=== PATIENT | male | born 1965 | race Caucasian/White ===

== ENCOUNTER 2017-09-05 16:52 | Emergency (ER) | payer MEDICAID ==
[~2017-09-05] VITALS: Ht 175.3 cm; Wt 84.1 kg
[~2017-09-05 16:52] MED LIST: ALBU8HFA PO; BACDS PO; CYCL-1 PO; HYDR-2514 PO; TRAZ-91 PO
[2017-09-05 17:04] VITALS: BP 157/97
== END 2017-09-05 19:05 | disposition home or self-care (01) ==
LOC: ER 16:53
DX: M70.22 Olecranon bursitis, left elbow (principal); J45.909 Unspecified asthma, uncomplicated; G89.29 Other chronic pain; M19.90 Unspecified osteoarthritis, unspecified site; Z86.14 Personal history of Methicillin resistant Staphylococcus aureus infection; Z88.0 Allergy status to penicillin; Z88.5 Allergy status to narcotic agent; Z91.013 Allergy to seafood; Z79.899 Other long term (current) drug therapy; Y93.89 Activity, other specified
CPT/HCPCS: 99281; 99285

== ENCOUNTER 2019-03-18 10:02 | Emergency (ER) | payer MEDICAID ==
[~2019-03-18] VITALS: Ht 175.3 cm; Wt 93.2 kg
[2019-03-18 10:27] VITALS: BP 144/93
[2019-03-18] MEDS ORDERED: MUPI22OI30 TOP (10:49)
== END 2019-03-18 11:10 | disposition home or self-care (01) ==
LOC: ER 10:03
DX: L02.414 Cutaneous abscess of left upper limb (principal); J45.909 Unspecified asthma, uncomplicated; M19.90 Unspecified osteoarthritis, unspecified site; G89.29 Other chronic pain; F17.210 Nicotine dependence, cigarettes, uncomplicated; Z90.89 Acquired absence of other organs; Z86.14 Personal history of Methicillin resistant Staphylococcus aureus infection; Z88.0 Allergy status to penicillin; Z88.5 Allergy status to narcotic agent; Z91.013 Allergy to seafood
CPT/HCPCS: 99283

== ENCOUNTER 2019-05-16 15:23 | Emergency (ER) | payer MEDICAID ==
[~2019-05-16] VITALS: Ht 175.3 cm; Wt 80.0 kg
[2019-05-16] MEDS ORDERED: LIDOcaine 1% w/EPI 1:200,000 injection 10mL vial IM ONE (16:15)
[2019-05-16] MEDS ORDERED: TETanus/Pertussis (Acell)/Diphther VAC/PF (Tdap-Adult) 0.5ml syringe IM ONE (16:15)
[2019-05-16] MEDS ORDERED: LIDOcaine 1% W/epiNEPHrine 1:200,000 10ml vial IJ ONE (16:25)
[2019-05-16] MEDS ORDERED: CLIN-90 PO (16:30)
== END 2019-05-16 16:56 | disposition home or self-care (01) ==
LOC: ER 15:24
DX: L03.311 Cellulitis of abdominal wall (principal); J45.909 Unspecified asthma, uncomplicated; M19.90 Unspecified osteoarthritis, unspecified site; G89.29 Other chronic pain; F12.90 Cannabis use, unspecified, uncomplicated; F15.90 Other stimulant use, unspecified, uncomplicated; Z86.14 Personal history of Methicillin resistant Staphylococcus aureus infection; Z90.89 Acquired absence of other organs; Z88.0 Allergy status to penicillin; Z91.013 Allergy to seafood; Z88.5 Allergy status to narcotic agent; Z79.899 Other long term (current) drug therapy
CPT/HCPCS: 90471; 99284

== ENCOUNTER 2019-07-12 17:06 | Emergency (ER) | payer MEDICAID ==
[~2019-07-12] VITALS: Ht 175.3 cm; Wt 90.0 kg
[~2019-07-12 17:06] MED LIST changes: +CLIN-90 PO; +LIDOcaine 1% W/epiNEPHrine 1:100,000 20ml vial ONE
[2019-07-12 17:09] VITALS: BP 142/81
[2019-07-12] MEDS ORDERED: SULF1TAB49 PO (17:48)
[2019-07-12] MEDS ORDERED: CEPH-572 PO (17:48)
== END 2019-07-12 17:51 | disposition home or self-care (01) ==
LOC: ER 17:06
DX: L02.413 Cutaneous abscess of right upper limb (principal); J43.9 Emphysema, unspecified; M19.90 Unspecified osteoarthritis, unspecified site; G89.29 Other chronic pain; F12.90 Cannabis use, unspecified, uncomplicated; F15.90 Other stimulant use, unspecified, uncomplicated; F17.200 Nicotine dependence, unspecified, uncomplicated; Z86.14 Personal history of Methicillin resistant Staphylococcus aureus infection; Z98.890 Other specified postprocedural states; Z88.0 Allergy status to penicillin; Z88.5 Allergy status to narcotic agent; Z91.013 Allergy to seafood; Z79.2 Long term (current) use of antibiotics; Z79.899 Other long term (current) drug therapy
CPT/HCPCS: 10060; 99283

== ENCOUNTER 2019-09-02 13:57 | Emergency (ER) | payer MEDICAID ==
[~2019-09-02] VITALS: Ht 175.3 cm; Wt 103.0 kg
[~2019-09-02 13:57] MED LIST changes: -LIDOcaine 1% W/epiNEPHrine 1:100,000 20ml vial ONE
[2019-09-02] MEDS ORDERED: normal saline 1000ML IV soln IVB ONE (14:20)
[2019-09-02 14:37] VITALS: BP 148/79
[2019-09-02 14:45] LABS: BASOPHILS % (AUTO) 0.4 % (0-1); EOSINOPHILS % (AUTO) 0.2 % (0-6); HEMATOCRIT 38.3 % (42.0-52.0); HEMOGLOBIN 13.2 g/dl (14.0-17.9); LYMPHOCYTES % (AUTO) 11.6 % (21-51); MEAN CORPUSCULAR HEMOGLOBIN 30.4 PG (27.0-31.0); MEAN CORPUSCULAR HGB CONC 34.4 g/dL (33.0-36.5); MEAN CORPUSCULAR VOLUME 88.2 FL (78-98); MEAN PLATELET VOLUME 8.3 FL (7.4-10.4); MONOCYTES # (AUTO) 0.5 X10'3 (0-0.9); MONOCYTES % (AUTO) 5.9 % (2-12); NEUTROPHILS # (AUTO) 7.2 X10'3 (1.8-7.7); NEUTROPHILS % (AUTO) 81.9 % (42-75); PLATELET COUNT 220 X10'3 (140-440); RED BLOOD COUNT 4.34 X10'6 (4.70-6.10); RED CELL DISTRIBUTION WIDTH 15.2 % (11.5-14.5); WHITE BLOOD COUNT 8.8 X10'3 (4.5-11.0)
[2019-09-02 14:49] LABS: ALANINE AMINOTRANSFERASE 17 U/L (12-78); ALBUMIN 3.4 G/DL (3.4-5.0); ALBUMIN/GLOBULIN RATIO 0.8 (1.1-1.5); ALKALINE PHOSPHATASE 95 IU/L (46-116); ANION GAP 4 (8-16); ASPARTATE AMINO TRANSFERASE 17 U/L (10-37); BILIRUBIN,TOTAL 0.2 MG/DL (0.1-1.0); BLOOD UREA NITROGEN 12 MG/DL (7-18); BUN/CREATININE RATIO 9.2 (5.4-32.0); CALCIUM 8.4 MG/DL (8.5-10.1); CHLORIDE 106 MMOL/L (99-107); CREATININE 1.31 MG/DL (0.60-1.10); GLUCOSE 173 MG/DL (70-104); POTASSIUM 3.9 MMOL/L (3.5-5.1); SODIUM 139 MMOL/L (135-145); TOTAL PROTEIN 7.5 G/DL (6.4-8.2); eGFR 57 ML/MIN
== END 2019-09-02 15:23 | disposition home or self-care (01) ==
LOC: ER 13:58
DX: F11.10 Opioid abuse, uncomplicated (principal); R55 Syncope and collapse; J45.909 Unspecified asthma, uncomplicated; J43.9 Emphysema, unspecified; M19.90 Unspecified osteoarthritis, unspecified site; G89.29 Other chronic pain; F12.90 Cannabis use, unspecified, uncomplicated; F15.90 Other stimulant use, unspecified, uncomplicated; Z86.14 Personal history of Methicillin resistant Staphylococcus aureus infection; Z98.890 Other specified postprocedural states; Z88.0 Allergy status to penicillin; Z88.5 Allergy status to narcotic agent; Z91.013 Allergy to seafood; Z79.2 Long term (current) use of antibiotics; Z79.899 Other long term (current) drug therapy
CPT/HCPCS: 36415; 71045; 80053; 83735; 83880; 84484; 85025; 93005; 96360; 99285; J7030

== ENCOUNTER 2020-08-21 11:29 | Emergency (ER) | payer MEDICAID ==
[~2020-08-21] VITALS: Ht 175.3 cm; Wt 90.9 kg
[~2020-08-21 11:29] MED LIST changes: -CLIN-90 PO; +CLIN-97 PO
== END 2020-08-21 12:10 | disposition home or self-care (01) ==
LOC: ER 11:29
DX: R06.02 Shortness of breath (principal); Z20.822 Contact with and (suspected) exposure to COVID-19; R19.7 Diarrhea, unspecified; M79.10 Myalgia, unspecified site; J45.909 Unspecified asthma, uncomplicated; J43.9 Emphysema, unspecified; M19.90 Unspecified osteoarthritis, unspecified site; G89.29 Other chronic pain; Z86.14 Personal history of Methicillin resistant Staphylococcus aureus infection; F12.90 Cannabis use, unspecified, uncomplicated; F15.90 Other stimulant use, unspecified, uncomplicated; F14.90 Cocaine use, unspecified, uncomplicated; Z88.0 Allergy status to penicillin; Z91.013 Allergy to seafood; Z88.8 Allergy status to other drugs, medicaments and biological substances; Z79.2 Long term (current) use of antibiotics; Z79.899 Other long term (current) drug therapy
CPT/HCPCS: 36415; 87635; 99283

== ENCOUNTER 2021-01-11 07:15 | Emergency (ER) | payer MEDICAID ==
[~2021-01-11] VITALS: Ht 175.3 cm; Wt 97.7 kg
[~2021-01-11 07:15] MED LIST changes: -BACDS PO; +SULF1TAB45 PO
[2021-01-11 07:36] VITALS: BP 154/92
[2021-01-11] MEDS ORDERED: HYDR-3686 PO (08:30)
[2021-01-11] MEDS ORDERED: TRAZ-256 PO (08:30)
[2021-01-11] MEDS ORDERED: hydrOXYzine 25 MG tablet PO ONE (08:30)
--- NOTE | 2021-01-11 08:52 | NUR ---
ATTEMPTING TO DC PT AND GIVE HIM PO ATARAX. PT IN BATHROOM.
== END 2021-01-11 08:54 | disposition home or self-care (01) ==
LOC: ER 07:16
DX: F41.9 Anxiety disorder, unspecified (principal); J43.9 Emphysema, unspecified; M19.90 Unspecified osteoarthritis, unspecified site; G89.29 Other chronic pain; F12.90 Cannabis use, unspecified, uncomplicated; F15.90 Other stimulant use, unspecified, uncomplicated; F14.90 Cocaine use, unspecified, uncomplicated; Z86.14 Personal history of Methicillin resistant Staphylococcus aureus infection; Z72.89 Other problems related to lifestyle; Z90.89 Acquired absence of other organs; Z88.0 Allergy status to penicillin; Z88.5 Allergy status to narcotic agent; Z91.013 Allergy to seafood; Z79.2 Long term (current) use of antibiotics; Z79.899 Other long term (current) drug therapy
CPT/HCPCS: 99283

== ENCOUNTER 2021-06-28 05:44 | Inpatient (IN) | payer MEDICAID ==
[2021-06-21 16:20] LABS: BASOPHILS % (AUTO) 0.5 % (0-1); EOSINOPHILS # (AUTO) 0.2 X10'3 (0-0.9); LYMPHOCYTES # (AUTO) 1.6 X10'3 (1.1-4.8); LYMPHOCYTES % (AUTO) 19.5 % (21-51); MEAN CORPUSCULAR HEMOGLOBIN 31.3 PG (27.0-31.0); MEAN CORPUSCULAR HGB CONC 35.1 g/dL (33.0-36.5); MEAN CORPUSCULAR VOLUME 89.2 FL (78-98); MEAN PLATELET VOLUME 7.9 FL (7.4-10.4); NEUTROPHILS # (AUTO) 5.5 X10'3 (1.8-7.7); PRE OP HEMATOCRIT 36.6 % (42.0-52.0); PRE OP HEMOGLOBIN 12.8 g/dL (14.0-17.9); PRE OP PLATELET COUNT 204 X10'3 (140-440); RED CELL DISTRIBUTION WIDTH 15.1 % (11.5-14.5)
[2021-06-21 16:31] LABS: ALBUMIN 3.5 G/DL (3.4-5.0); ALBUMIN/GLOBULIN RATIO 0.9 (1.1-1.5); ALKALINE PHOSPHATASE 89 IU/L (46-116); BLOOD UREA NITROGEN 19 MG/DL (7-18); CALCIUM 8.6 MG/DL (8.5-10.1); CHLORIDE 102 MMOL/L (99-107); CREATININE 1.12 MG/DL (0.60-1.10); PRE OP ALT 34 U/L (30-65); PRE OP ANION GAP 6 (8-16); PRE OP AST 15 U/L (10-37); PRE OP BILIRUB, TOTAL 0.2 MG/DL (0.0-1.0); PRE OP GLUCOSE 91 MG/DL (70-104); PRE OP POTASSIUM 4.4 MMOL/L (3.4-5.1); PRE OP SODIUM 137 MMOL/L (135-145); TOTAL CARBON DIOXIDE 29.3 MMOL/L (24-32); TOTAL PROTEIN 7.6 G/DL (6.4-8.2); eGFR 68 ML/MIN
[2021-06-28] VITALS (18 sets, daily range): BP systolic 112–177; BP diastolic 68–95
[~2021-06-28] VITALS: Ht 175.3 cm; Wt 113.0 kg
[~2021-06-28 05:44] MED LIST changes: -ALBU8HFA PO; +ALBUTEROL INH; +BUPR1FIL3; +CHLO25TA10 PO; -CLIN-97 PO; -CYCL-1 PO; -HYDR-2514 PO; -SULF1TAB45 PO; +TRAZ-256 PO; -TRAZ-91 PO; +albuterol 2.5 MG/3 ML nebule NEB ONE; +clindamycin-Cleocin 900mg/D5W 50 ML IV ONE; +famotidine 20mg tablet PO ONE; +ringers solution, lacted 1,000 ML IV SCH
[2021-06-28] MEDS ORDERED: BUPIVAcaine/PF 2.5mg/ml (0.25%) 10ml vial ONE (06:42)
[2021-06-28] MEDS ORDERED: BUPIVAcaine/PF 2.5 mg/ml (0.25%) 30ml vial ONE (06:42)
[2021-06-28] MEDS ORDERED: LIDOcaine 1% 30ml preserv. free vial ONE (06:42)
[2021-06-28] MEDS ORDERED: BUPIVACAINE liposomal/PF 13.3 MG/ML vial IM ONE (06:42)
[2021-06-28] MEDS ORDERED: sevoflurane 250ml liquid IH ONE (07:23)
[2021-06-28] MEDS ORDERED: rocuronium 10mg/ml inj IV ONE (07:28)
[2021-06-28] MEDS ORDERED: fentaNYL/PF 50MCG/1 ML 2ML syringe ONE (07:28)
[2021-06-28] MEDS ORDERED: midazolam 1 mg/ML 2ml injection ONE (07:28)
[2021-06-28] MEDS ORDERED: propofol inj 20 ML IV ONE (07:28)
[2021-06-28] MEDS ORDERED: morphine 4 MG/ML inj SYRINge IV PRN (08:10)
[2021-06-28] MEDS ORDERED: labetalol 20mg/4ml (5mg/ml) syringe IV PRN (08:10)
[2021-06-28] MEDS ORDERED: albuterol 2.5 MG/3 ML nebule NEB ONE (08:10)
[2021-06-28] MEDS ORDERED: morphine 2 MG/ML inj. syringe IV PRN (08:10)
[2021-06-28] MEDS ORDERED: ringers solution, lacted 1,000 ML IV SCH (08:10)
[2021-06-28] MEDS ORDERED: proCHLORperazine 10 MG/2 ml inj IV PRN (08:10)
[2021-06-28] MEDS ORDERED: meperidine/PF 25mg/ml syringe IV PRN ×3 (08:10)
[2021-06-28] MEDS ORDERED: ondansetron/PF 4mg/2ml inj IV PRN ×2 (08:10→13:35)
[2021-06-28] MEDS ORDERED: dexamethasone sod phosphate 4mg/ml inj. ONE (08:46)
[2021-06-28] MEDS ORDERED: ondansetron/PF 4mg/2ml inj ONE (08:47)
[2021-06-28] MEDS ORDERED: neostigmine methylsulfate 1 MG/ML 10ml vial ONE (08:48)
[2021-06-28] MEDS ORDERED: glycopyrrolate 0.2mg/ml inj ONE (08:48)
[2021-06-28] MEDS ORDERED: sugammadex 200mg/2ml injection IV ONE ×2 (09:06→09:22)
--- NOTE | 2021-06-28 09:26 | NUR ---
Received from OR via [facility], 20G IV TO LEFT HAND. ABD DSG CDI, ABD BINDER IN PLACE., accompanied by Anesthesiologist FRANCISCA AND HAND TOOL LAPPER and report given by Anesthesiolgist. Addendum: 06/28/21 at 0937 by Lima Zuniga RN Amended: Links added.
[2021-06-28] MEDS ORDERED: OXYC1TAB17 PO (09:36)
[2021-06-28] MEDS: oxyCODONE/APAP 10/325mg tablet PO PRN (10:16)
--- NOTE | 2021-06-28 10:55 | NUR ---
PT UP IN WC SATS 88-90, PT DRIFTING TO SLEEP SATS DECREASE, PAGED RT FOR TX, CONTINUED TO ROUSE PT. INSTRUCTED PT IN USE OF IS WITH RETURN DEMO 12 XS, STATS INCREASED TO 93% RA. RT AT FOR TX Addendum: 06/28/21 at 1102 by Lima Zuniga RN Amended: Links added.
--- NOTE | 2021-06-28 12:16 | NUR ---
PT TAKEN TO PAS UNIT VIA WC. REPORT GIVEN TO BHAVESH BRONSON. PT EDUCATED EXTENSIVELY MULTIPLE TIME OF THE IMPORTANCE TO COUGH AND DEEP BREATHING. EDUCATED AT LENGTH RE LOW O2 SATS, AND IMPORTANCE OF F/U WITH PMD FOR SLEEP STUDY FOR SLEEP APNEA. PT STATES HE HAS AN APT NEXT WEEK. PT AGAIN DEMONSTRATED GOOD USE OF IS X 10. O2 SATS CONTINUE TO BE 82-84 ON RA WHILE AWAKE AND 90-92 ON 2L WHILE AWAKE. SPOKE WITH DR SUN RE LOW O2 SATS, HE STATES TO KEEP PT LONGER AND IF PT CAN MAINTAIN 88% OR ABOVE WHILE AWAKE HE MAY BE DC TO HOME. INQUIRED IF PT HAS FAMILY AT HOME HE STATES HE LIVES WITH 4 OTHER PEOPLE AND THEY WILL BE THERE TO CHECK ON HIM TODAY AND TONIGHT. Addendum: 06/28/21 at 1251 by Lima Zuniga RN Amended: Links added.
--- NOTE | 2021-06-28 12:30 | NUR ---
RECEIVED FROM RECOVERY-PT AWAKENS EASILY, BUT FALLS ASLEEP EASILY WHILE IN W/C, VSS-O2 90-92% ON 2LTRS, PT HAS HX OF SLEEP APNEA AND HAS BEEN HAVING DIFFICULTY STAYING AWAKE AT HOME PRIOR TO PROCEDURE. WILL MONITOR AND SEE IF O2 SAT CAN IMPROVE.
[2021-06-28] MEDS ORDERED: traZODone 50mg tablet PO PRN (13:35)
--- NOTE | 2021-06-28 14:30 | NUR ---
PT UNABLE TO MAINTAIN ADEQUATE SATURATION W/O SUPPLEMENTAL 02, PT WILL BE ADMITTED FOR OBSERVATION. WAITING FOR A ROOM
--- NOTE | 2021-06-28 15:40 | NUR ---
PT TAKEN TO ROOM 354C VIA W/C WITH ALL BELONGINGS, VSS ON 2LTS O2, DENIES PAIN, LAP SITES TO ABD- CDI, PT TO HAVE CONTINUOUS PULSE OX, PT AND DAUGHTER EDUCATED REGARDING RISKS OF ANESTHESIA/NARCOTICS AND SLEEP APNEA, ENCOURAGED TO SLEEP IN RECLINER AND FOLLOW THROUGH WITH ALREADY SCHEDULED SLEEP STUDY, REPORT CALLED TO ALEX RN-ALL QUESTIONS ANSWERED.
--- NOTE | 2021-06-28 16:00 | NUR ---
Patient in room [facility]. I have received report from Ignacio BRONSON and had the opportunity to ask questions and assume patient care.
--- NOTE | 2021-06-28 18:16 | NUR ---
Problems reprioritized. Patient report given, questions answered & plan of care reviewed with Carisa BRONSON.
[2021-06-28] MEDS: heparin, porcine 5000 units/ml vial SQ SCH (20:00)
[2021-06-29] VITALS: BP 147/75
[2021-06-29] MEDS: oxyCODONE/APAP 10/325mg tablet PO PRN ×2 (00:37→11:33)
--- NOTE | 2021-06-29 06:34 | NUR ---
Patient report given , questions answered and plan opf care reviewed with Tayler BRONSON .
[2021-06-29 07:00] VITALS: BP 162/96
[2021-06-29] MEDS: heparin, porcine 5000 units/ml vial SQ SCH (07:43)
[2021-06-29] MEDS ORDERED: buprenorphine/naloxone 8MG-2MG SUBlingual film SL SCH (08:00)
[2021-06-29] MEDS ORDERED: chlorthalidone 25mg tablet PO SCH (08:00)
--- NOTE | 2021-06-29 10:20 | NUR ---
O2 Sat at rest on room air:__93_% If below 89%: Recovery O2 Sat at rest on ___LPM:___%:___% via (mask/nasal cannula, etc..) No further documentation is necessary. If O2 Sat did not drop below 89% on room air,ambulate patient on room air. O2 Sat while ambulating on room air:___% Recovery O2 Sat while ambulating on ___LPM:___% No further documentation is necessary. If patient does not drop below 89% while ambulating, he/she does not qualify for home O2.
--- NOTE | 2021-06-29 12:48 | NUR ---
Per Dr. Scott, patient is good to go home today. I told him about the patient planning to get sleep study done outpatient.
--- NOTE | 2021-06-29 13:18 | NUR ---
I called Dr. Scott's office to request call in of narcotic ordered for discharge as we do not have ability to electronically transmit the order or call in narcotic to the pharmacy. The medical insurance collector said she will take care of it
--- NOTE | 2021-06-29 13:55 | NUR ---
Discharge instructions given to felipa, patient verbalized understanding of all instructions made: follow up with Dr. Scott in 2 weeks, when to call 911, to attend his sleep study arranged for Friday. Patient expressed concern about having issue with oxygen while he sleeping tonight. Patient did not qualified for home O2 when I checked him today - he was doing 92-93% on room air. Patient stated understanding that insurance will not pay for home O2 if he does not qualify for home O2. He states "If I have to pay for it then I would have to pay for it! I gave patient the phone number and address to [facility]. Patient said he was advised by the sleep study staff that he would need doctor's order for home O2 even if he is paying for the oxygen and not the insurance. I have also advised to call his PCP today to obtain order for home O2 so he could buy it. I have communicated this issue with the charge nurse Lesley. Peripheral IV catheter was removed, tip intact. I called back Dr. Scott's office to follow up patient requesting for prescription for home O2, the medical billing representative said she will relay this message to Dr. Scott as soon as he finish seeing a patient in the office. I gave the medical billing representative the direct phone number at [facility]. Addendum: 06/29/21 at 1431 by Maren Cohn RN Dr. Scott's learning and development assistant called me back, she said that Dr. Scott was not familiar with the process and that he advised to have egg caser assist. I told her that I have already talked to Makenna, the egg caser about this and that she said the same thing - patient need to be qualified for home O2. Patient was notified about this, he states "it's fine now, I'll follow up with my primary and will have sleep study done on Friday!"
--- NOTE | 2021-06-29 14:47 | NUR ---
Patient left at 0391
== END 2021-06-29 14:25 | disposition home or self-care (01) | DRG 227 ==
LOC: PAS 05:44 → OBSVTOIN 13:33 → SUR 3N 13:33
PROVIDERS: ADMIT Surgery; ATTEND Surgery
PROC: 8E0W4CZ Robotic Assisted Procedure of Trunk Region, Percutaneous Endoscopic Approach (ICD-10-PCS; 2021-06-28)
PROC: 3E0T3BZ Introduction of Anesthetic Agent into Peripheral Nerves and Plexi, Percutaneous Approach (ICD-10-PCS; 2021-06-28)
PROC: 0KQ Muscles, Repair (ICD-10-PCS; 2021-06-28)
PROC: 0KQ Muscles, Repair (ICD-10-PCS; 2021-06-28)
PROC: 0WUF4JZ Supplement Abdominal Wall with Synthetic Substitute, Percutaneous Endoscopic Approach (ICD-10-PCS; principal; 2021-06-28 07:23)
DX: K43.6 Other and unspecified ventral hernia with obstruction, without gangrene (principal); F17.210 Nicotine dependence, cigarettes, uncomplicated; I10 Essential (primary) hypertension; J45.909 Unspecified asthma, uncomplicated; M62.08 Separation of muscle (nontraumatic), other site; F41.9 Anxiety disorder, unspecified; Z88.5 Allergy status to narcotic agent; Z88.0 Allergy status to penicillin; Z91.013 Allergy to seafood; Z79.899 Other long term (current) drug therapy; Z71.6 Tobacco abuse counseling
CPT/HCPCS: 36415; 71046; 80053; 82948; 85025; 93005; 94640; 94760; A4215; A4618; C1781; C9290; G0378; J1100; J1644; J2250; J2270; J2405; J2704; J2710; J3010; J3490; J7120; U0003; U0005

== ENCOUNTER 2021-08-10 13:25 | Emergency (ER) | payer MEDICAID ==
[~2021-08-10] VITALS: Ht 175.3 cm; Wt 100.0 kg
[~2021-08-10 13:25] MED LIST changes: +OXYC1TAB17 PO; -albuterol 2.5 MG/3 ML nebule NEB ONE; -clindamycin-Cleocin 900mg/D5W 50 ML IV ONE; -famotidine 20mg tablet PO ONE; -ringers solution, lacted 1,000 ML IV SCH
[2021-08-10] MEDS ORDERED: SOTROVIMAB 500mg injection 500 MG in normal saline 100ml IV soln 100 ML IV ONE (15:30)
[2021-08-10 18:49] VITALS: BP 159/93
== END 2021-08-10 18:00 | disposition home or self-care (01) ==
LOC: ER 13:25
DX: U07.1 COVID-19 (principal); J45.909 Unspecified asthma, uncomplicated; M19.90 Unspecified osteoarthritis, unspecified site; F12.90 Cannabis use, unspecified, uncomplicated; F15.90 Other stimulant use, unspecified, uncomplicated; F14.90 Cocaine use, unspecified, uncomplicated; J43.9 Emphysema, unspecified; Z88.0 Allergy status to penicillin; Z88.5 Allergy status to narcotic agent; Z91.013 Allergy to seafood
CPT/HCPCS: 99284; J3490; M0247; Q0247

== ENCOUNTER 2022-03-04 05:33 | Emergency (ER) | payer MEDICAID ==
[~2022-03-04] VITALS: Ht 175.3 cm; Wt 100.0 kg
[2022-03-04] MEDS ORDERED: ondansetron 4mg rapidly disintigrating tab PO ONE (06:15)
[2022-03-04] MEDS ORDERED: diltiazem 5mg/ml 5ml inj. IV ONE (08:10)
[2022-03-04 08:33] VITALS: BP 145/81
== END 2022-03-04 08:59 | disposition home or self-care (01) ==
LOC: ER 05:34
DX: S60.462A Insect bite (nonvenomous) of right middle finger, initial encounter (principal); J45.909 Unspecified asthma, uncomplicated; M19.90 Unspecified osteoarthritis, unspecified site; G89.29 Other chronic pain; M54.50 Low back pain, unspecified; Z88.0 Allergy status to penicillin; Z88.5 Allergy status to narcotic agent; Z91.013 Allergy to seafood; W57.XXXA Bitten or stung by nonvenomous insect and other nonvenomous arthropods, initial encounter; Y93.89 Activity, other specified; Y92.89 Other specified places as the place of occurrence of the external cause; Y99.8 Other external cause status
CPT/HCPCS: 99283

== ENCOUNTER 2023-06-19 18:49 | Emergency (ER) | payer MEDICAID ==
[~2023-06-19] VITALS: Ht 175.3 cm; Wt 108.5 kg
[2023-06-19 19:10] LABS: BASOPHILS # (AUTO) 0.1 X10'3 (0-0.2); EOSINOPHILS # (AUTO) 0.2 X10'3 (0-0.9); HEMATOCRIT 38.6 % (42.0-52.0); HEMOGLOBIN 13.3 g/dl (14.0-17.9); MEAN CORPUSCULAR HEMOGLOBIN 31.2 PG (27.0-31.0); RED BLOOD COUNT 4.26 X10'6 (4.70-6.10); WHITE BLOOD COUNT 11.4 X10'3 (4.5-11.0)
[2023-06-19 19:11] LABS: BASOPHILS % (AUTO) 0.7 % (0-1); EOSINOPHILS % (AUTO) 2.1 % (0-6); LYMPHOCYTES # (AUTO) 2.2 X10'3 (1.1-4.8); LYMPHOCYTES % (AUTO) 19.4 % (21-51); MEAN CORPUSCULAR HGB CONC 34.5 g/dL (33.0-36.5); MEAN CORPUSCULAR VOLUME 90.4 FL (78-98); MONOCYTES # (AUTO) 1.1 X10'3 (0-0.9); MONOCYTES % (AUTO) 9.3 % (2-12); NEUTROPHILS # (AUTO) 7.8 X10'3 (1.8-7.7); NEUTROPHILS % (AUTO) 68.5 % (42-75); PLATELET COUNT 219 X10'3 (140-440); RED CELL DISTRIBUTION WIDTH 13.8 % (11.5-14.5)
[2023-06-19 19:24] LABS: ALANINE AMINOTRANSFERASE 33 U/L (12-78); ALBUMIN 3.7 G/DL (3.4-5.0); ALBUMIN/GLOBULIN RATIO 0.9 (1.1-1.5); ALKALINE PHOSPHATASE 105 IU/L (46-116); ANION GAP 5 (8-16); ASPARTATE AMINO TRANSFERASE 24 U/L (10-37); BILIRUBIN,TOTAL 0.3 MG/DL (0.1-1.0); BLOOD UREA NITROGEN 25 MG/DL (7-18); BUN/CREATININE RATIO 19.4 (10.0-20.0); CALCIUM 8.7 MG/DL (8.5-10.1); CHLORIDE 101 MMOL/L (99-107); CREATININE 1.29 MG/DL (0.60-1.10); GLUCOSE 103 MG/DL (70-104); POTASSIUM 3.7 MMOL/L (3.5-5.1); SODIUM 140 MMOL/L (135-145); TOTAL CARBON DIOXIDE 34.3 MMOL/L (24-32); TOTAL PROTEIN 7.8 G/DL (6.4-8.2); eCRCL 63 ML/MIN; eGFR 57 ML/MIN
[2023-06-20] MEDS ORDERED: dexamethasone 4mg tablet PO ONE (01:50)
[2023-06-20] MEDS ORDERED: ipratropium/albuterol 3ml nebule NEB ONE (01:50)
[2023-06-20] MEDS ORDERED: PRED20TA PO (01:52)
[2023-06-20] MEDS ORDERED: AZIT-164 PO (01:52)
[2023-06-20] MEDS ORDERED: ALBU18HF2 IH (01:52)
[2023-06-20] MEDS ORDERED: TIOT18CA3 INH (01:52)
[2023-06-20 02:10] VITALS: PULSE 61; RESP 18; O2SAT 95
[2023-06-20 02:20] VITALS: PULSE 60; RESP 18; O2SAT 99
[2023-06-20 02:40] VITALS: BP 135/85; PULSE 65; RESP 17; TEMP 98.9; O2SAT 98
== END 2023-06-20 02:42 | disposition home or self-care (01) ==
LOC: ER 18:50
DX: J45.901 Unspecified asthma with (acute) exacerbation (principal); B34.9 Viral infection, unspecified; G89.29 Other chronic pain; M19.90 Unspecified osteoarthritis, unspecified site; F17.200 Nicotine dependence, unspecified, uncomplicated; Z86.14 Personal history of Methicillin resistant Staphylococcus aureus infection; Z72.89 Other problems related to lifestyle; Z90.89 Acquired absence of other organs; Z88.0 Allergy status to penicillin; Z91.013 Allergy to seafood; Z88.5 Allergy status to narcotic agent; Z79.899 Other long term (current) drug therapy
CPT/HCPCS: 36415; 71045; 80053; 84484; 85025; 93005; 94640; 94760; 99285